=== PATIENT | female | born 1960 | race Two or more races ===

== ENCOUNTER 2022-10-02 17:24 | Emergency (ER) | payer OTHER ==
[~2022-10-02] VITALS: Ht 160 cm; Wt 81.5 kg
[~2022-10-02 17:24] MED LIST: AMIT50TA10
[2022-10-02] MEDS ORDERED: IBUP-1456 PO (20:24)
[2022-10-02] MEDS ORDERED: CYCL-837 PO (20:24)
[2022-10-02] MEDS ORDERED: IBUPROFEN 800 MG TAB PO ONE (20:30)
[2022-10-02 20:44] VITALS: BP 123/72
== END 2022-10-02 20:45 | disposition home or self-care (01) ==
LOC: ER 17:24
DX: S16.1XXA Strain of muscle, fascia and tendon at neck level, initial encounter (principal); K21.9 Gastro-esophageal reflux disease without esophagitis; I10 Essential (primary) hypertension; Z88.8 Allergy status to other drugs, medicaments and biological substances; Z79.899 Other long term (current) drug therapy; Z90.49 Acquired absence of other specified parts of digestive tract; V49.49XA Driver injured in collision with other motor vehicles in traffic accident, initial encounter; Y93.89 Activity, other specified; Y92.481 Parking lot as the place of occurrence of the external cause; Y99.8 Other external cause status
CPT/HCPCS: 72125